=== PATIENT | female | born 1970 | race Caucasian/White ===

== ENCOUNTER 2016-05-29 08:03 | Emergency (ER) | payer BC, OTHER ==
[~2016-05-29] VITALS: Ht 160 cm; Wt 58.6 kg
[2016-05-29 08:07] VITALS: TEMP 37.1; Ht 160 cm; Wt 58.6 kg
--- NOTE | 2016-05-29 08:23 | EMERGENCY ROOM VISIT NOTE ---
ED Visit Note First contact with patient: 08:17 Patient evaluated with resident. Accidental nearly atraumatic fall during transfer at facility. Sent here per policy. No known injuries.
--- NOTE | 2016-05-29 08:24 | EMERGENCY ROOM VISIT NOTE ---
History Report prepared by Willie: Dagoberto Mandujano Under the Supervision of: Dr. Aniya Bernstein M.D. First contact with patient: 08:17 Chief Complaint: SHOULDER PAIN Stated Complaint: FELL WHILE HELPING CLIENT - History of Present Illness The patient is a 46 year old female who presents to the Emergency Room with complaints of persistent right shoulder pain starting a few minutes prior to arrival. The patient was transferring a client from bed to chair when she fell with him. She has worsening pain with movement. She denies chest pain, shortness of breath, or any other complaints. Source of History: patient Onset: a few minutes prior to arrival Position: shoulder (right) Timing: other (persistent) Modifying Factors (Worsening): movement Associated Symptoms: No SOB, No chest pain Review of Systems See HPI for pertinent positives & negatives. A total of 6 systems reviewed and were otherwise negative. Past Medical & Surgical Medical Problems: (1) No Known Active Medical Problems Family History Patient reports no known family medical history. Social History Smoking Status: Current Every Day Smoker Marital Status: Occupation Status: employed Current/Historical Medications Scheduled Fluoxetine (Prozac), 40 MG PO DAILY Folic Acid (Folvite), 1 MG PO DAILY Furosemide (Lasix), 20 MG PO DAILY Lorazepam (Ativan), 1 MG PO BID Allergies Coded Allergies: Morphine (Unverified Allergy, Unknown, hallucination, 05/29/16) Penicillins (Unverified Allergy, Unknown, couldn't wake up?, 05/29/16) Physical Exam Vital Signs Date Time Temp Pulse Resp B/P Pulse Ox O2 Delivery O2 Flow Rate FiO2 05/29/16 08:42 88 18 136/85 96 05/29/16 08:07 37.1 88 18 136/85 96 Room Air Physical Exam CONSTITUTIONAL: Mild positional distress with movement of the right shoulder. HEENT: No icterus, moist mucous membranes NECK: No meningismus, trachea is midline. CARDIOVASCULAR: Regular rate, normal perfusion RESPIRATORY: Unlabored breathing. Clear to auscultation. GASTROINTESTINAL: Non-tender GENITOURINARY: No flank tenderness MUSCULOSKELETAL: Mild tenderness to right lateral shoulder, with full range of motion. NEUROLOGIC: No acute gross focal deficits. PSYCHIATRIC: Normal affect SKIN: Normal for ethnicity. Medical Decision & Procedures ED Course 0817: Past medical records reviewed. The patient was evaluated in room A03. A complete history and physical examination was performed. 0830: Upon reexamination the patient is resting comfortably. I discussed results and treatment plan with the patient. She verbalizes agreement and understanding. The patient is ready for discharge. Medical Decision Differential diagnosis includes but is not limited to shoulder strain. 46 y/o came to ED per protocol at work after straining shoulder during accidental mild fall with patient while transferring from bed to wheelchair. No other acute concerns. FROM, mild lateral shoulder tenderness. History and exam c/w shoulder strain. Sling. Tylenol + Motrin Q6 PRN Pain. Impression Primary Impression: Shoulder strain Scribe Attestation The scribe's documentation has been prepared under my direction and personally reviewed by me in its entirety. I confirm that the note above accurately reflects all work, treatment, procedures, and medical decision making performed by me. Departure Information Dispostion Home / Self-Care Referrals Lico Garrison MD (PCP) Forms HOME CARE DOCUMENTATION FORM, IMPORTANT VISIT INFORMATION Patient Instructions My [facility]
[2016-05-29] MEDS ORDERED: ATV/1 PO (08:26)
[2016-05-29] MEDS ORDERED: FOLI1TAB7 PO (08:26)
[2016-05-29] MEDS ORDERED: FLUO40CA8 PO (08:26)
[2016-05-29] MEDS ORDERED: FURO-85 PO (08:26)
[2016-05-29 08:42] VITALS: BP 136/85; PULSE 88; O2SAT 96
== END 2016-05-29 08:42 | disposition home or self-care (01) ==
LOC: C.EDB 08:04 → C.EDA 08:42
DX: S46.911A Strain of unspecified muscle, fascia and tendon at shoulder and upper arm level, right arm, initial encounter (principal); W18.30XA Fall on same level, unspecified, initial encounter; Y99.0 Civilian activity done for income or pay; F17.200 Nicotine dependence, unspecified, uncomplicated